=== PATIENT | female | born 1930 | race Caucasian/White ===

== ENCOUNTER 2019-08-20 12:10 | Emergency (ER) | payer SELFPAY ==
[~2019-08-20] VITALS: Ht 167.6 cm; Wt 90.7 kg
[2019-08-20 15:50] VITALS: BP 177/98
== END 2019-08-20 16:01 | disposition home or self-care (01) ==
LOC: EDBD 12:10 → ER 12:16
DX: S39.012A Strain of muscle, fascia and tendon of lower back, initial encounter (principal); S13.4XXA Sprain of ligaments of cervical spine, initial encounter; E11.9 Type 2 diabetes mellitus without complications; Z90.710 Acquired absence of both cervix and uterus; V49.69XA Unspecified car occupant injured in collision with other motor vehicles in traffic accident, initial encounter; Y93.89 Activity, other specified; Y99.8 Other external cause status; Y92.410 Unspecified street and highway as the place of occurrence of the external cause
CPT/HCPCS: 70450; 72125